=== PATIENT | female | born 1995 | race Caucasian/White ===

== ENCOUNTER → 2018-05-15 | Outpatient (CLI) | payer OTHER ==
[2018-05-15 11:03] LABS: BASOPHIL % 0.5 % (0.0-0.2); EOSINOPHIL # 0.1 10^3/uL (0.0-0.2); EOSINOPHIL % 1.5 % (0.0-5.0); HEMOGLOBIN 14.9 g/dL (12.0-15.0); LYMPHOCYTES # 1.7 10^3/uL (1.0-4.8); LYMPHOCYTES % 42.1 % (24.0-44.0); MEAN CELL HGB 29.3 pg (26-34); MEAN CORP VOLUME 88.6 fL (78-100); MEAN PLATELET VOLUME 9.7 fL (7.8-11.0); MONOCYTES # 0.3 10^3/uL (0.3-0.8); MONOCYTES % 7.3 % (5.0-12.0); NEUTROPHILS % 48.6 % (41.0-85.0); RED CELL DISTRIBUTION WIDTH 12.2 % (11.5-14.5); WHITE BLOOD CELL 4.1 10^3/uL (4.5-11.0)
[2018-05-15 11:30] LABS: CALCIUM 9.4 mg/dL (8.4-10.5); CARBON DIOXIDE 28.4 mmol/L (20.0-32)
[2018-05-18 07:32] LABS: ESTRADIOL 36.3 pg/mL (.); FOLLICLE STIMULATING HORMONE 9.5 mIU/mL (.)
== END | disposition home or self-care (01) ==
LOC: LAB 10:38
DX: N39.0 Urinary tract infection, site not specified (principal); R55 Syncope and collapse; R68.2 Dry mouth, unspecified
CPT/HCPCS: 36415; 80053; 82397; 82670; 83001; 84146; 84443; 85025; 86376